=== PATIENT | female | born 1965 | race Caucasian/White ===

== ENCOUNTER 2019-01-24 10:45 | Outpatient (RCR) | payer OTHER ==
[~2019-01-24 10:45] MED LIST: ACYSUS PO; ALPR.5T PO; ALPR0.5T3 PO; ALPR1T GT; ALPR1T PO; CEPH-507 PO; CITA10TA PO; CYCL10TA9 PO; DOXY-233 PO; FAMO-119 PO; LORA-405 PO; METH4TAB PO; NAPR-243 PO; ONDA4TAB11 PO; OSLT75CRX PO; OXYC-12 PO; OXYC-309 PO; OXYC1TAB95 PO; PRD10T; PRD20T PO; PRD50T PO; PREG25CA PO; QUET25TA PO; SEROQUEL PO; SOMA; SULF1TAB35 PO; TRAZ50TA67 PO
== END 2019-01-24 11:55 | disposition home or self-care (01) ==
PROVIDERS: ATTEND Nurse Practitioner
DX: M54.2 Cervicalgia (principal)

== ENCOUNTER 2020-05-05 11:21 | Outpatient (RCR) | payer MEDICAID | END 2020-06-16 | disposition home or self-care (01) | PROVIDERS: ATTEND Orthopaedic Surgery | DX: S43.432A Superior glenoid labrum lesion of left shoulder, initial encounter (principal); I10 Essential (primary) hypertension; K21.9 Gastro-esophageal reflux disease without esophagitis; J45.909 Unspecified asthma, uncomplicated; M81.0 Age-related osteoporosis without current pathological fracture; M19.90 Unspecified osteoarthritis, unspecified site; M50.20 Other cervical disc displacement, unspecified cervical region; M51.26 Other intervertebral disc displacement, lumbar region; Z90.49 Acquired absence of other specified parts of digestive tract; Z90.710 Acquired absence of both cervix and uterus; Z98.890 Other specified postprocedural states ==

== ENCOUNTER 2021-05-11 06:19 | Outpatient (CLI) | payer MEDICAID ==
[~2021-05-11] VITALS: Ht 165 cm; Wt 89.0 kg
[~2021-05-11 06:19] MED LIST changes: -SULF1TAB35 PO; +SULF1TAB38 PO
[2021-05-11] MEDS ORDERED: LISI-729 PO (09:41)
[2021-05-11] MEDS ORDERED: PANT20TA2 PO (09:41)
[2021-05-11] MEDS ORDERED: LORA10TA7 PO (09:41)
[2021-05-11] MEDS ORDERED: OXYC1TAB15 PO (09:41)
[2021-05-11] MEDS ORDERED: ALBU10PO MC (10:14)
[2021-05-11] MEDS ORDERED: CYCL10TA9 PO (10:14)
== END 2021-05-11 10:33 | disposition home or self-care (01) ==
LOC: PREOP 06:19
PROVIDERS: ATTEND Surgery
DX: Z01.818 Encounter for other preprocedural examination (principal)

== ENCOUNTER 2021-05-12 05:52 | Day surgery (SDC) | payer MEDICAID ==
[2021-05-12] VITALS (9 sets, daily range): BP systolic 129–150; BP diastolic 72–85
[~2021-05-12] VITALS: Ht 165 cm; Wt 89.0 kg
[~2021-05-12 05:52] MED LIST changes: +ALBU10PO MC; +LISI-729 PO; +LORA10TA7 PO; +OXYC1TAB15 PO; +PANT20TA2 PO
[2021-05-12] MEDS ORDERED: ceFAZolin 2 GM IV Premixed 50 ML IV ONE (06:30)
[2021-05-12] MEDS ORDERED: proPOfol 200 MG/20 ML (DIPRIVAN) VIAL IV ONE (07:12)
[2021-05-12] MEDS ORDERED: SEVOFLURANE (ULTANE) 15 ML INHAL SOLN ONE ×2 (07:12→08:19)
[2021-05-12] MEDS ORDERED: ONDANSETRON 4 MG/2 ML (SDV) Z0FRAN ONE (07:12)
[2021-05-12] MEDS ORDERED: LIDOCAINE PF 2% 5 ML (XYLOCAINE) VIAL ONE (07:12)
[2021-05-12] MEDS ORDERED: fentaNYL INJ 100 MCG/2 ML AMP ONE (07:13)
[2021-05-12] MEDS ORDERED: MIDAZOLAM 2 MG/2 ML (VERSED) VIAL ONE (07:13)
[2021-05-12] MEDS: LACTATED RINGERS 1,000 ML IV PRN ×2 (07:20→08:28)
[2021-05-12] MEDS ORDERED: LIDOCAINE/EPI 1%-1:100,000 (XYLOCAINE) 20ML ONE (07:34)
--- NOTE | 2021-05-12 07:54 | Progress Note-Pre Operative ---
Pre-Operative Progress Note H&P Reviewed The H&P was reviewed, patient examined and no changes noted. Date Seen by Provider: May 12, 2021 Time Seen by Provider: 07:53 Date H&P Reviewed: May 12, 2021 Time H&P Reviewed: 07:53 Pre-Operative Diagnosis: lipoma left abdomen/flank PADMA MARTI DO May 12, 2021 07:54
--- NOTE | 2021-05-12 08:29 | Progress Note-Post Operative ---
Post-Operative Progess Note Surgeon (s)/Red Mud Thickener Operator (s) Surgeon PADMA MARTI DO [employer] Mud Thickener Operator: na Pre-Operative Diagnosis lipoma left abdomen/flank Post-Operative Diagnosis same Procedure & Operative Findings Date of Procedure 05/12/21 Procedure Performed/Findings excision lipoma left lower abdomen/flank 7x6x1.5cm Anesthesia Type general Estimated Blood Loss Estimated blood loss (mL): min Specimens/Packing Specimens Removed lipoma PADMA MARTI DO May 12, 2021 08:29
--- NOTE | 2021-05-12 08:34 | Discharge Inst-Simple/Standard ---
Discharge Inst-Standard Patient Instructions/Follow Up Plan of Care/Instructions/FU: 2 weeks Yennifer Activity as Tolerated: No (No strenuous activity) Discharge Diet: Regular Diet Other Inst to Patient Follow up Appt: Make appointment for 2 week. Instructions: No strenuous activity. May shower in 24 hours, no tub bath or soaking. Use incentive spirometer at home as directed. No Smoking Skin/Wound Care: You have special glue over your incision that will fall off on it's own. Symptoms to Report: Appetite Changes, Extremity Discoloration, Numbness/Tingling, Swelling Incre ased, Bleeding Excessive, Eyesight Changes, Pain Increased, Urine Color Change, Constipation(Persistent), Fever over 101 degree F, Pain/Pressure in chest, Urinating Difficulty, Cough Up/Vomit Blood, Heart Beat Irreg/Pounding, Pain/Pressure in jaw, Vaginal Bleeding Increase, Cramps in feet or legs, Lightheadedness, Pain/Pressure in shoulder, Diarrhea(Persistent), Memory Changes Suddenly, Questions/Concerns, Weight gain consecutive days, Dizziness/Fainting, Nausea/Vomiting, Shortness of Breath, Weight gain over 2 pounds If questions or concerns contact your physician Or seek help at emergency department. PADMA MARTI DO May 12, 2021 08:34
[2021-05-12] MEDS ORDERED: MEPERIDINE (DEMEROL) INJ 50 MG/ML IVP ONE (08:45)
[2021-05-12] MEDS ORDERED: fentaNYL INJ 100 MCG/2 ML AMP IVP ONE (08:45)
[2021-05-12] MEDS ORDERED: oxyCODONE/APAP 5/325MG (PERCOCET 5) TABLET ONE (09:40)
[2021-05-12] MEDS ORDERED: oxyCODONE/APAP 5/325MG (PERCOCET 5) TABLET PO ONE (09:45)
--- NOTE | 2021-05-12 10:13 | OPERATIVE REPORT ---
DATE OF SERVICE: 05/12/2021 PREOPERATIVE DIAGNOSIS: Lipoma, left lower abdomen/flank. POSTOPERATIVE DIAGNOSIS: Lipoma, left lower abdomen/flank. PROCEDURE: Excision of lipoma 7 x 6 x 1.5 cm. SURGEON: Padma De Oliveira DO ANESTHESIA: General. ESTIMATED BLOOD LOSS: Minimal. COMPLICATIONS: None. INDICATIONS: The patient is a 55-year-old female with a lipoma, which is increasing size. She wishes to have it removed. She understands risks and benefits of procedure and wished to proceed with procedure. Consent was signed in the chart. DESCRIPTION OF PROCEDURE: The patient was taken to the operating suite. She was prepped and draped in sterile fashion. Timeout was performed. Local anesthetic was infiltrated. A 15 blade scalpel was used to make a skin incision in the left lower quadrant over the palpable mass. Cautery was used to dissect down through the subcutaneous tissues where the lipoma was encountered. Blunt dissection used to dissect around the lipoma and remove it and using cautery to achieve hemostasis. Once removed, the subcutaneous tissues were then reapproximated using 3-0 Vicryl. Skin was then closed using 4-0 Monocryl in a running subcuticular fashion. The area was washed, and dried and sterile bandage was applied. Skin Affix was placed over the incision. The patient tolerated procedure well without any complications, taken to recovery room in stable condition. CC: Dr. Ren -- requested, unable to deliver. Job ID: [id number] DocumentID: [id number] Dictated Date: 05/12/2021 08:36:27 Cardroom Supervisor Date: 05/12/2021 10:12:54 Dictated By: PADMA DE OLIVEIRA DO
--- NOTE | 2021-05-12 11:47 | Anesthesia-General Post-Op ---
General Patient Condition Mental Status/LOC: Same as Preop Cardiovascular: Satisfactory Nausea/Vomiting: Absent Respiratory: Satisfactory Pain: Controlled Complications: Absent Post Op Complications Complications None Follow Up Care/Instructions Patient Instructions None needed. Anesthesia/Patient Condition Patient Condition Patient is doing well, no complaints, stable vital signs, no apparent adverse anesthesia problems. No complications reported per nursing. ANNAMARIA HAM CRNA May 12, 2021 11:47
== END 2021-05-12 09:55 | disposition home or self-care (01) ==
LOC: SDC 05:52
PROVIDERS: ATTEND Surgery
DX: D17.79 Benign lipomatous neoplasm of other sites (principal); K21.9 Gastro-esophageal reflux disease without esophagitis; I10 Essential (primary) hypertension; J45.909 Unspecified asthma, uncomplicated; F32.9 Major depressive disorder, single episode, unspecified; F41.9 Anxiety disorder, unspecified; F17.210 Nicotine dependence, cigarettes, uncomplicated; Z79.899 Other long term (current) drug therapy; Z79.891 Long term (current) use of opiate analgesic; Z90.710 Acquired absence of both cervix and uterus; Z90.49 Acquired absence of other specified parts of digestive tract
CPT/HCPCS: 87081

== ENCOUNTER → 2022-05-26 | Outpatient (RCR) | payer MEDICAID ==
[~2022-05-26] MED LIST changes: +CYCL10TA25 PO; -LISI-729 PO; +LISI5TAB20 PO
== END | disposition home or self-care (01) ==
PROVIDERS: ATTEND Nurse Practitioner Gerontology
DX: M47.816 Spondylosis without myelopathy or radiculopathy, lumbar region (principal); I10 Essential (primary) hypertension

== ENCOUNTER 2022-06-05 13:10 | Outpatient (RCR) | payer MEDICAID | END 2022-06-26 | disposition home or self-care (01) | PROVIDERS: ATTEND Nurse Practitioner Gerontology | DX: M47.816 Spondylosis without myelopathy or radiculopathy, lumbar region (principal); I10 Essential (primary) hypertension ==

== ENCOUNTER → 2022-11-07 | Outpatient (CLI) | payer OTHER ==
--- NOTE | 2022-11-07 10:46 | Diagnostic Imaging Report ---
INDICATION: CHRONIC BACK PAIN TECHNIQUE: AP, Lateral and Spot imaging of the lumbar spine CORRELATION STUDY: None FINDINGS: Lumbar spinal alignment is anatomic. Lumbar vertebral body heights are maintained. Various degrees of moderate to marked disc space narrowing most severe at L5-S1 level. Prominent calcification the abdominal aorta. SI joints and bilateral hip joints appearing unremarkable. IMPRESSION: No radiographic evidence for acute bony abnormality of the lumbar spine. Asymmetric degenerative disc disease L5-S1. Dictated by: Dictated on workstation # [id number]
== END ==
LOC: RAD 09:11
PROVIDERS: ATTEND Family Medicine
DX: Z02.71 Encounter for disability determination (principal); M51.37 Other intervertebral disc degeneration, lumbosacral region
CPT/HCPCS: 72100